=== PATIENT | female | born 1970 ===

== ENCOUNTER 2021-06-01 07:16 | Day surgery (SDC) | payer BC ==
[~2021-06-01 07:16] MED LIST: Lactated Ringers 1,000 ML IV SCH; Sodium Chloride 0.9% 10 ML Syringe FLUSH PRN; Sodium Chloride 0.9% 2.5 ML Syringe FLUSH PRN; Sodium Chloride 0.9% 20 ML SDV IV PRN
--- NOTE | 2021-06-01 07:40 | PCM.PREANE ---
Preanesthetic Assessment - Procedure Proposed Procedure: EGD/Colonoscopy - Anesthesia/Transfusion/Family Hx Anesthesia History: Prior Anesthesia Without Reaction Other Type of Anesthesia Reaction Comment: Denies any known problem in past no known family history of problems Transfusion History: No Prior Transfusion(s) - Review of Systems General: No Symptoms Pulmonary: No Symptoms Cardiovascular: No Symptoms Gastrointestinal: No Symptoms Neurological: No Symptoms Other: Reports: None - Physical Assessment NPO Status Date: 05/31/21 NPO Status Time: 20:00 Vital Signs: Last Vital Signs Temp 97.9 F 06/01/21 07:29 Pulse 76 06/01/21 07:29 Resp 14 06/01/21 07:29 BP 112/78 06/01/21 07:29 Pulse Ox 97 06/01/21 07:29 Height: 5 ft 4 in Weight: 83.461 kg ASA Class: 1 Mental Status: Alert & Oriented x3 Airway Class: Mallampati = 2 Dentition: Reports: Normal Dentition Thyro-Mental Finger Breadths: 2 Mouth Opening Finger Breadths: 3 ROM/Head Extension: Full Lungs: Clear to Auscultation, Normal Respiratory Effort Cardiovascular: Regular Rate, Regular Rhythm - Allergies Allergies/Adverse Reactions: Allergies Allergy/AdvReac Type Severity Reaction Status Date / Time No Known Allergies Allergy Verified 05/26/21 09:55 - Acknowledgements Anesthesia Type Planned: General Anesthesia Pt an Appropriate Candidate for the Planned Anesthesia: Yes Alternatives and Risks of Anesthesia Discussed w Pt/Guardian: Yes Pt/Guardian Understands and Agrees with Anesthesia Plan: Yes PreAnesthesia Questionnaire - Past Health History Medical/Surgical History: Denies Medical/Surgical History HEENT History: Reports: Other (See Below) Other HEENT History: wears glasses for driving, has upper permanent dental bridge Cardiovascular History: Reports: None Respiratory History: Reports: None Gastrointestinal History: Reports: Chronic Constipation, GERD, Irritable Bowel Syndrome Genitourinary History: Reports: None [employer] History: Reports: Ectopic , Musculoskeletal History: Reports: None Neurological History: Reports: Other (See Below) Other Neuro History: hx of motion sickness Psychiatric History: Reports: None Endocrine/Metabolic History: Reports: Obesity/BMI 30+ Hematologic History: Reports: None Immunologic History: Reports: None Oncologic (Cancer) History: Reports: None Dermatologic History: Reports: None - Past Surgical History Head Surgeries/Procedures: Reports: None HEENT Surgical History: Reports: Oral Surgery Other HEENT Surgeries/Procedures: wisdom teeth removed Cardiovascular Surgical History: Reports: None Respiratory Surgical History: Reports: None GI Surgical History: Reports: Appendectomy, Colonoscopy, EGD Female Surgical History: Reports: Section, D&C, Tubal Ligation Other Female Surgeries/Procedures: 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, hx TOVT Endocrine Surgical History: Reports: None Neurological Surgical History: Reports: None Musculoskeletal Surgical History: Reports: None - SUBSTANCE USE Tobacco Use Status *Q: Never Tobacco User Recreational Drug Use History: No - HOME MEDS Home Medications: Home Meds Ascorbic Acid [Vitamin C] 100 mg PO DAILY 05/26/21 [History] Cholecalciferol (Vitamin D3) [Vitamin D3] 2,000 unit PO DAILY 05/26/21 [History] Esomeprazole [NexIUM] 20 mg PO DAILY 05/26/21 [History] Linaclotide [Linzess] 72 mcg PO DAILY 05/26/21 [History] Multivitamin 1 tab PO DAILY 05/26/21 [History] Zinc 100 mg PO DAILY 05/26/21 [History] - CURRENT (IN HOUSE) MEDS Current Meds: Current Medications Lactated Ringer's (Ringers, Lactated) 1,000 mls @ 125 mls/hr IV ASDIRECTED [facility] Last Admin: 06/01/21 07:28 Dose: 125 mls/hr Documented by: Sodium Chloride (Sodium Chloride 0.9% 10 Ml Syringe) 10 ml FLUSH ASDIRECTED PRN PRN Reason: Keep Vein Open Sodium Chloride (Sodium Chloride 0.9% 2.5 Ml Syringe) 2.5 ml FLUSH ASDIRECTED PRN PRN Reason: Keep Vein Open Sodium Chloride (Sodium Chloride 0.9% 10 Ml Syringe) 10 ml FLUSH ASDIRECTED PRN PRN Reason: Keep Vein Open Sodium Chloride (Sodium Chloride 0.9% 2.5 Ml Syringe) 2.5 ml FLUSH ASDIRECTED PRN PRN Reason: Keep Vein Open Sodium Chloride (Sodium Chloride 0.9% 20 Ml Sdv) 10 ml IV ASDIRECTED PRN PRN Reason: IV Use
[2021-06-01] MEDS ORDERED: propofoL 50 ML ONE (09:10)
[2021-06-01] MEDS ORDERED: fentaNYL 100 MCG/2 ML SDV ONE (09:53)
--- NOTE | 2021-06-01 10:49 | PCM.OPNOTE ---
- General Post-Op/Procedure Note Date of Surgery/Procedure: 06/01/21 Operative Procedure(s): Diagnostic EGD and screening colonoscopy Findings: Normal colonoscopy. Normal appearing EGD other than hyperplastic gastric polyps Pre Op Diagnosis: Dysphagia, screening colonoscopy Post-Op Diagnosis: HYperplastic gastric polyp, screening colonoscopy Anesthesia Technique: [facility] Primary Surgeon: Willow Mills Condition: Good
[2021-06-01 11:16] VITALS: BP 104/50; PULSE 52
--- NOTE | 2021-06-01 12:01 | PCM.POSTAN ---
POST ANESTHESIA ASSESSMENT - MENTAL STATUS Mental Status: Alert, Oriented - VITAL SIGNS Vital Signs: Last Vital Signs Temp 97.7 F 06/01/21 11:05 Pulse 52 L 06/01/21 11:05 Resp 14 06/01/21 11:05 BP 104/50 L 06/01/21 11:05 Pulse Ox 97 06/01/21 11:05 - RESPIRATORY Respiratory Status: Respiratory Rate WNL, Airway Patent, O2 Saturation Stable - CARDIOVASCULAR CV Status: Pulse Rate WNL, Blood Pressure Stable - GASTROINTESTINAL GI Status: No Symptoms - POST OP HYDRATION Hydration Status: Adequate & Stable
--- NOTE | 2021-06-01 12:02 | PCM48HPAN ---
Post Anesthesia Note - EVALUATION WITHIN 48HRS OF ANESTHETIC Vital Signs in Normal Range: Yes Patient Participated in Evaluation: Yes Respiratory Function Stable: Yes Airway Patent: Yes Cardiovascular Function Stable: Yes Hydration Status Stable: Yes Pain Control Satisfactory: Yes Nausea and Vomiting Control Satisfactory: Yes Mental Status Recovered: Yes Vital Signs: Last Vital Signs Temp 97.7 F 06/01/21 11:05 Pulse 52 L 06/01/21 11:05 Resp 14 06/01/21 11:05 BP 104/50 L 06/01/21 11:05 Pulse Ox 97 06/01/21 11:05
--- NOTE | 2021-06-01 17:19 | OR ---
SURGEON: WILLOW MILLS MD DATE OF PROCEDURE: 06/01/2021 PREOPERATIVE DIAGNOSES: 1. Dysphagia. 2. Screening colonoscopy. POSTOPERATIVE DIAGNOSES: 1. Dysphagia. 2. Hyperplastic gastric polyp. 3. Normal colonoscopy. PROCEDURE PERFORMED: Diagnostic esophagogastroduodenoscopy and screening colonoscopy. PRIMARY SURGEON: Willow Mills MD ANESTHESIA: MAC. INSTRUMENT USED: Olympus endoscope and colonoscope. EXTENT OF EXAM: To the second portion of the duodenum, to the cecum. PREPARATION: Good. LIMITATIONS: None. INDICATIONS FOR EXAMINATION: The patient is a 51-year-old female who presents with complaints of dysphagia and is in need of a screening colonoscopy. I explained the procedure, expected perioperative course, and the risks. She verbalized understanding and wishes to proceed. PROCEDURE IN DETAIL: The patient was brought in to the endoscopy suite and placed in a left lateral decubitus position. A time-out was completed verifying the patient's name, age, date of , allergies, and procedure to be performed. A bite block was placed in the patient's mouth. Monitored anesthesia care was induced and continuous oxygen was provided via face mask throughout the procedure. After adequate sedation was achieved, a well-lubricated endoscope was placed in the patient's mouth and advanced under direct visualization to the second portion of the duodenum. This appeared normal and a photograph was taken. The scope was then straightened out and fully withdrawn while examining the color, texture, anatomy, and integrity of mucosa of the upper GI tract. The duodenum appeared normal. The scope was brought into the stomach and a photograph was taken of the pylorus and GE junction. The patient had a few scattered hyperplastic polyps in the body of the stomach. One of these was removed and sent to Pathology for histologic review. Random biopsies were taken of the gastric antrum, body, and fundus and sent for histologic review and H pylori testing. The scope was then brought into the distal esophagus and a photograph was taken of the Z-line. This appeared normal and a photograph was taken. A biopsy was taken 1 cm above the Z-line and sent to Pathology for histologic review. The remainder of the esophagus was normal. The scope was removed and this portion of procedure terminated. A digital rectal exam was performed. This exam was within normal limits. A well-lubricated colonoscope was inserted into the rectum and advanced under direct visualization to the level of the cecum. The cecum was identified by both visual and anatomic landmarks. A photograph was taken of the cecal cap, however, I was unable to retroflex the scope within the cecum. The scope was then fully withdrawn while examining the color, texture, anatomy, and integrity of the mucosa from the cecum to the anal canal. The findings were consistent with normal colonic mucosa. The scope was then brought into the rectum and retroflexed to allow visualization of the anal canal opening. This appeared normal and a photograph was taken. The scope was then straightened out and fully withdrawn. The cecum to anus time was 6 minutes. The patient tolerated the procedure well and was transferred to the PACU in stable condition. ENDOSCOPIC DIAGNOSES: 1. Dysphagia. 2. Hyperplastic gastric polyp. 3. Normal colonoscopy. RECOMMENDATION: Follow up in clinic in two weeks. YEHUDA RODRIGUEZ /[id number]
== END 2021-06-01 11:31 | disposition home or self-care (01) ==
LOC: MW.SDS 07:16
PROVIDERS: ATTEND Surgery
DX: Z12.11 Encounter for screening for malignant neoplasm of colon (principal); K21.00 Gastro-esophageal reflux disease with esophagitis, without bleeding; R13.10 Dysphagia, unspecified; K31.7 Polyp of stomach and duodenum; K29.50 Unspecified chronic gastritis without bleeding; E66.9 Obesity, unspecified; Z68.31 Body mass index [BMI] 31.0-31.9, adult
CPT/HCPCS: 43239; 45378; 81025; J2704; J3010; J7120; 00813

== ENCOUNTER 2022-10-11 23:26 | Emergency (ER) | payer BC ==
[2022-10-12] MEDS ORDERED: cefTRIAXone 1 GM Vial IM ONE (00:18)
[2022-10-12] MEDS ORDERED: Phenazopyridine 200 MG Tab PO ONE (00:18)
[2022-10-12] MEDS ORDERED: Lidocaine 1% 2 ML ONE (00:30)
[2022-10-12] MEDS ORDERED: Lidocaine 1% PF 2 ML SDV INJECT ONE (00:31)
[2022-10-12 00:41] VITALS: BP 111/40; PULSE 65
== END 2022-10-12 00:50 | disposition home or self-care (01) ==
LOC: MW.ED 23:26
DX: N39.0 Urinary tract infection, site not specified (principal); K21.9 Gastro-esophageal reflux disease without esophagitis; E66.9 Obesity, unspecified; Z68.25 Body mass index [BMI] 25.0-25.9, adult; Z79.899 Other long term (current) drug therapy
CPT/HCPCS: 81001; 87086; 96372; 99283; A9270; J0696; 87088; 87186; J3490

== ENCOUNTER 2023-10-14 14:31 | Emergency (ER) | payer BC ==
[2023-10-14 14:47] VITALS: BP 131/58; PULSE 68
[2023-10-14] MEDS: Diphtheria,Pertussis(Acell),Tetanus Vaccine 0.5 ML Syringe IM ONE (15:31)
[2023-10-14] MEDS: Lidocaine 1% 5 ML VIAL INJECT ONE (15:33)
== END 2023-10-14 16:12 | disposition home or self-care (01) ==
LOC: MW.ED 14:31
DX: S61.210A Laceration without foreign body of right index finger without damage to nail, initial encounter (principal); E66.9 Obesity, unspecified; K21.9 Gastro-esophageal reflux disease without esophagitis; Z23 Encounter for immunization; Z79.899 Other long term (current) drug therapy; Z68.24 Body mass index [BMI] 24.0-24.9, adult; Z75.8 Other problems related to medical facilities and other health care; W26.8XXA Contact with other sharp object(s), not elsewhere classified, initial encounter; Y93.G1 Activity, food preparation and clean up
CPT/HCPCS: 12001; 90471; 90715; 99282-25; 99283; J3490